=== PATIENT | female | born 1945 | race Caucasian/White ===

== ENCOUNTER 2016-10-28 09:59 | Outpatient (CLI) | payer MEDICARE ==
[2016-10-28 10:56] LABS: ALT (SGPT) 38 U/L (0-55); AST (SGOT) 39 U/L (5-34); Albumin 3.9 g/dL (3.4-4.8); Alkaline Phosphatase 86 U/L (40-150); Anion Gap 15 mmol/L (10-20); BUN (Urea Nitrogen) 18 mg/dL (9.8-20.1); Bilirubin, Direct 0.2 mg/dL (0.1-0.3); Bilirubin, Total 0.6 mg/dL (0.2-1.2); Calc. Creatinine Clearance 0 mL/min (70-130); Calcium 9.6 mg/dL (7.8-10.44); Carbon Dioxide 27 mmol/L (23-31); Chloride 97 mmol/L (98-107); Estimated GFR-MDRD 76; Glucose 137 mg/dL (83-110); Hemoglobin A1c 6.9 % (4.0-6.0); Potassium 4.1 mmol/L (3.5-5.1); Protein, Total 7.1 g/dL (5.8-8.1); Sodium 135 mmol/L (136-145)
== END 2016-10-28 10:00 ==
LOC: MADLABBHPM 09:59
PROVIDERS: ATTEND Family Medicine
DX: E11.9 Type 2 diabetes mellitus without complications (principal)
CPT/HCPCS: 36415; 80048; 80076; 83036

== ENCOUNTER 2019-05-20 11:02 | Outpatient (CLI) | payer MEDICARE ==
--- NOTE | 2019-05-20 11:42 | CT ---
Exam: Head CT without contrast HISTORY: Memory impairment COMPARISON: none FINDINGS: Hemorrhage: No intraparenchymal hemorrhage or extra-axial hematoma. Brain parenchyma: Cortical altamirano-white matter differentiation is preserved. No mass effect or midline shift. Basilar cisterns are patent.There is diffuse cerebral brain volume loss. White matter hypodensities due to chronic small vessel ischemic changes are noted. Ventricular system: Ventricular system is prominent and is in keeping with the overall degree of atro phy. 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 Calvarium: Intact. Sinuses and mastoid air cells: Adequate aeration. IMPRESSION: 1. No acute intracranial process 2. Diffuse cerebral atrophy. 3. Chronic small vessel ischemic changes white matter 4. Prominence of the ventricular system, in keeping with the overall degree of atrophy.
== END 2019-05-20 11:03 | disposition home or self-care (01) ==
LOC: MADLABBHPM 11:02
PROVIDERS: ATTEND Family Medicine
DX: R41.3 Other amnesia (principal); G31.9 Degenerative disease of nervous system, unspecified
CPT/HCPCS: 36415; 70450; 82607

== ENCOUNTER 2019-08-02 18:28 | Emergency (ER) | payer MEDICARE ==
[2019-08-02] MEDS ORDERED: Bacitracin 1 PK ONE (20:03)
== END 2019-08-02 20:13 | disposition home or self-care (01) ==
LOC: MADERS 18:28
DX: S00.83XA Contusion of other part of head, initial encounter (principal); I25.10 Atherosclerotic heart disease of native coronary artery without angina pectoris; I25.2 Old myocardial infarction; E11.9 Type 2 diabetes mellitus without complications; E78.5 Hyperlipidemia, unspecified; E78.00 Pure hypercholesterolemia, unspecified; I10 Essential (primary) hypertension; F32.9 Major depressive disorder, single episode, unspecified; W18.30XA Fall on same level, unspecified, initial encounter; Y92.481 Parking lot as the place of occurrence of the external cause
CPT/HCPCS: 99283

== ENCOUNTER 2019-09-20 17:50 | Emergency (ER) | payer MEDICARE ==
--- NOTE | 2019-09-20 18:40 | CT ---
Head CT without contrast 09/20/2019: COMPARISON: 05/20/2019 HISTORY: Injury, trauma, pain TECHNIQUE: Axial CT imaging at 5 mm intervals from vertex through skull base without contrast FINDINGS: The visualized paranasal sinuses and mastoid air cells are well aerated. No displaced grace rial fracture is noted. There is a focal area of scalp swelling posteriorly on the right in the parieto-occipital region. There is also soft tissue swelling seen laterally on the left just superior to the ear in the left temporal region. No associated calvarial fracture. There is atherosclerotic calcification of the distal right vertebra l artery and bilateral cavernous carotid arteries. There is moderate diffuse cerebral volume loss with associated prominence of the CSF containing space s. There is extensive periventricular, deep, and subcortical white matter hypodensity. There is a new focal area of well-defined hypodensity measuring 2.5 cm involving the superior aspect of the righ t putamen extending into the periventricular white matter suggesting an area of interval infarction. 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 For full assessment, nonemergent brain MRI is advised for full assessment. Underlying mass cannot be fully excluded. Areas of soft tissue swelling noted with no associated calvarial fracture or intracranial hemorrhage.
--- NOTE | 2019-09-20 18:43 | CT ---
CT of theface: 09/20/2019 COMPARISON:None available HISTORY:Injury, trauma, pain TECHNIQUE: Serial axial CT imaging at2.5 mm intervals through the face without contrast. Coronal and sagittal reformatted imaging obtained. Findings:Partially imaged brain parenchyma demonstrates extensive periventricular, deep, and subcorti arlene white matter hypodensity, evidence of small vessel disease. The nasal bones, zygomatic arches, and pterygoid plates are intact. The mastoid air cells and the par anasal sinuses are well aerated. There is incompletely imaged scalp swelling in the right parieto-occipital region and in the left temporal region. The orbital floor and the medial orbital wa ll appears intact bilaterally. Neither temporomandibular joint is dislocated and there is no evidence for a mandibular fracture. Impression:No acute facial bone fracture.
[2019-09-20] MEDS ORDERED: Sodium Chloride 0.9% 1,000 ML ONE ×2 (18:51→20:55)
--- NOTE | 2019-09-20 19:05 | RAD ---
Portable frontal chest radiograph: 09/20/2019 COMPARISON: 01/28/2008 HISTORY: Fall, tachycardia FINDINGS: Stable right-sided Port-A-Cath and midline sternotomy wires. No pneumothorax, pleural fluid , focal consolidation, or alveolar edema. There is atherosclerotic calcification of the aortic arch. IMPRESSION: No focal consolidation or alveolar edema.
[2019-09-20 19:13] LABS: #Basophils 0.1 thou/uL (0.0-0.2); #Lymphocytes 1.6 thou/uL (1.20-3.40); #Monocytes 1.1 thou/uL (0.11-0.59); #Neutrophils 12.6 thou/uL (1.40-6.50); %Basophils 0.5 % (0.0-1.0); %Eosinophils 0.1 % (0.0-10.0); %Lymphocytes 10.1 % (21.0-51.0); %Monocytes 6.9 % (0.0-10.0); %Neutrophils 82.4 % (42.0-75.0); Hemoglobin 13.3 g/dL (12.0-16.0); Mean Corpuscular HGB CONC 31.4 g/dL (32.0-36.0); Mean Corpuscular Hemoglobin 28.1 pg (27.0-31.0); Mean Corpuscular Volume 89.7 fL (78.0-98.0); Mean Platelet Volume 9.7 fL (7.4-10.4); Platelet Count 337 thou/uL (130-400); RBC Distribution Width 12.1 % (11.5-14.5); Red Blood Cell (RBC) Count 4.74 mill/uL (4.20-5.40); White Blood Cell (WBC) Count 15.3 thou/uL (4.8-10.8)
[2019-09-20 19:31] LABS: ALT (SGPT) 47 U/L (8-55); AST (SGOT) 81 U/L (5-34); Albumin 4.2 g/dL (3.4-4.8); Alkaline Phosphatase 105 U/L (40-110); Anion Gap 19 mmol/L (10-20); BUN (Urea Nitrogen) 34 mg/dL (9.8-20.1); Bilirubin, Total 0.8 mg/dL (0.2-1.2); CK (CPK) 2167 U/L (29-168); Calc. Creatinine Clearance 0 mL/min (70-130); Calcium 10.1 mg/dL (7.8-10.44); Carbon Dioxide 23 mmol/L (23-31); Chloride 100 mmol/L (98-107); Estimated GFR-MDRD 78; Globulin 3.3 g/dL (2.4-3.5); Glucose 144 mg/dL (83-110); Magnesium 1.9 mg/dL (1.6-2.6); Potassium 3.7 mmol/L (3.5-5.1); Protein, Total 7.5 g/dL (6.0-8.3); Sodium 138 mmol/L (136-145)
[2019-09-20 19:37] LABS: Bilirubin Small (Negative); Blood, Urine Moderate (Negative); Clarity Cloudy (Clear); Glucose, Urine (Dipstick) Negative (Negative); Leukocyte Negative (Negative); Nitrite Negative (Negative); Protein, Urine (Dipstick) 100 mg/dL (Neg-Trace); Urobilinogen 0.2 mg/dL (Less than 2)
[2019-09-20 19:46] LABS: Bacteria/HPF Rare-Few HPF (None Seen); Mucous/LPF 4+ LPF (<2+); Squamous Epithelial 0-3 HPF (0-3); WBC/HPF 0-3 HPF (0-3)
[2019-09-20 20:14] LABS: CKMB 19.5 ng/mL (0-6.6); Critical Call CKMB 0
[2019-09-21] MEDS ORDERED: Sodium Chloride 0.9% 1,000 ML ONE ×2 (00:10→03:53)
[2019-09-21 00:17] LABS: Anion Gap 14 mmol/L (10-20); BUN (Urea Nitrogen) 31 mg/dL (9.8-20.1); CK (CPK) 1615 U/L (29-168); Calc. Creatinine Clearance 0 mL/min (70-130); Calcium 8.8 mg/dL (7.8-10.44); Carbon Dioxide 22 mmol/L (23-31); Chloride 106 mmol/L (98-107); Estimated GFR-MDRD Greater than 90; Glucose 123 mg/dL (83-110); Potassium 3.4 mmol/L (3.5-5.1); Sodium 139 mmol/L (136-145)
[2019-09-21] MEDS ORDERED: Aspirin Chewable 81 MG TAB ONE (00:32)
[2019-09-21 00:38] LABS: CKMB 13.5 ng/mL (0-6.6); Critical Call CKMB 0
== END 2019-09-21 06:25 | disposition short-term general hospital (02) ==
LOC: MADERS 17:50
DX: T79.6XXA Traumatic ischemia of muscle, initial encounter (principal); I25.10 Atherosclerotic heart disease of native coronary artery without angina pectoris; I25.2 Old myocardial infarction; E11.9 Type 2 diabetes mellitus without complications; E78.5 Hyperlipidemia, unspecified; I10 Essential (primary) hypertension; F32.9 Major depressive disorder, single episode, unspecified; Z79.84 Long term (current) use of oral hypoglycemic drugs; Z79.899 Other long term (current) drug therapy; W19.XXXA Unspecified fall, initial encounter; Z91.81 History of falling
CPT/HCPCS: 36416; 51701; 70450; 70486; 71045; 80053; 81003; 81015; 82550; 82553; 83735; 83880; 84484; 85025; 87086; 93005; 96360; 96361; A4353; J7050

== ENCOUNTER 2021-06-11 16:20 | Emergency (ER) | payer MEDICARE ==
[2021-06-11] MEDS ORDERED: Ibuprofen 100 MG/5 ML UDCUP ONE (17:01)
[2021-06-11 17:17] LABS: #Lymphocytes 0.9 thou/uL (1.20-3.40); #Monocytes 0.9 thou/uL (0.11-0.59); #Neutrophils 6.7 thou/uL (1.40-6.50); %Basophils 0.5 % (0.0-1.0); %Eosinophils 0.1 % (0.0-10.0); %Lymphocytes 10.2 % (21.0-51.0); %Monocytes 10.6 % (0.0-10.0); %Neutrophils 78.6 % (42.0-75.0); Hemoglobin 10.8 g/dL (12.0-16.0); Mean Corpuscular HGB CONC 31.3 g/dL (32.0-36.0); Mean Corpuscular Hemoglobin 27.7 pg (27.0-31.0); Mean Corpuscular Volume 88.6 fL (78.0-98.0); Mean Platelet Volume 8.5 fL (7.4-10.4); Platelet Count 226 thou/uL (130-400); RBC Distribution Width 12.3 % (11.5-14.5); White Blood Cell (WBC) Count 8.5 thou/uL (4.8-10.8)
[2021-06-11 17:28] LABS: CRP (Inflammatory) 11.1 mg/dL (= or < 0.5)
[2021-06-11 17:32] LABS: Bilirubin Negative (Negative); Blood, Urine Moderate (Negative); Glucose, Urine (Dipstick) Negative (Negative); Ketone, Urine 15 mg/dL (Negative); Leukocyte Large (Negative); Nitrite Positive (Negative); Protein, Urine (Dipstick) 100 mg/dL (Neg-Trace); pH, Urine 5.5 (5.0-9.0)
[2021-06-11 17:34] LABS: Clarity Cloudy (Clear)
[2021-06-11 17:35] LABS: Bacteria/HPF 3+ HPF (None Seen); WBC/HPF Greater Than 50 HPF (0-3)
[2021-06-11 17:39] LABS: ALT (SGPT) 12 U/L (8-55); AST (SGOT) 15 U/L (5-34); Albumin 3.4 g/dL (3.4-4.8); Alkaline Phosphatase 81 U/L (40-110); Anion Gap 16 mmol/L (10-20); BUN (Urea Nitrogen) 25 mg/dL (9.8-20.1); Bilirubin, Total 0.4 mg/dL (0.2-1.2); Calc. Creatinine Clearance 0 mL/min (70-130); Calcium 8.7 mg/dL (7.8-10.44); Carbon Dioxide 23 mmol/L (23-31); Chloride 99 mmol/L (98-107); Globulin 3.3 g/dL (2.4-3.5); Glucose 174 mg/dL (83-110); Potassium 3.8 mmol/L (3.5-5.1); Protein, Total 6.7 g/dL (5.8-8.1); Sodium 134 mmol/L (136-145)
[2021-06-11] MEDS ORDERED: cefTRIAXone\\ROCEPHIN 2 GM VIAL ONE (18:08)
[2021-06-11] MEDS ORDERED: Sodium Chloride 0.9% 100 ML ONE (18:09)
[2021-06-11 18:47] LABS: SARS-CoV-2 NAA Rapid Test Not Detected (NotDetected)
== END 2021-06-11 19:27 ==
LOC: MADERS 16:20
DX: N10 Acute pyelonephritis (principal); I25.10 Atherosclerotic heart disease of native coronary artery without angina pectoris; I25.2 Old myocardial infarction; E11.9 Type 2 diabetes mellitus without complications; Z20.822 Contact with and (suspected) exposure to COVID-19; E78.5 Hyperlipidemia, unspecified; I10 Essential (primary) hypertension; Z79.899 Other long term (current) drug therapy; Z79.82 Long term (current) use of aspirin
CPT/HCPCS: 0240U; 36415; 51701; 71045; 80053; 81003; 81015; 82550; 83605; 84484; 85025; 85379; 86140; 87040; 87149; 93005; 94760; 96365; J0696; J3490

== ENCOUNTER 2022-04-22 17:21 | Emergency (ER) | payer MEDICARE ==
[~2022-04-22 17:21] MED LIST: Iopamidol 370 76% 125 ML VIAL FS ONE
[2022-04-22 18:18] LABS: #Basophils 0.1 thou/uL (0.0-0.2); #Eosinphils 0.2 thou/uL (0.0-0.7); #Lymphocytes 2.5 thou/uL (1.20-3.40); #Monocytes 0.7 thou/uL (0.11-0.59); #Neutrophils 5.5 thou/uL (1.40-6.50); %Basophils 0.9 % (0.0-1.0); %Eosinophils 1.8 % (0.0-10.0); %Lymphocytes 27.9 % (21.0-51.0); %Monocytes 8.1 % (0.0-10.0); %Neutrophils 61.3 % (42.0-75.0); Hemoglobin 11.1 g/dL (12.0-16.0); Mean Corpuscular HGB CONC 32.2 g/dL (32.0-36.0); Mean Corpuscular Hemoglobin 29.3 pg (27.0-31.0); Mean Platelet Volume 9.9 fL (7.4-10.4); Platelet Count 249 thou/uL (130-400); RBC Distribution Width 12.4 % (11.5-14.5); White Blood Cell (WBC) Count 8.9 thou/uL (4.8-10.8)
[2022-04-22 18:26] LABS: INR-International Normal Ratio 1.1; Prothrombin Time 13.9 sec (12.0-14.7)
[2022-04-22 18:27] LABS: PTT 32.8 sec (22.9-36.1)
[2022-04-22 18:37] LABS: ALT (SGPT) 12 U/L (8-55); AST (SGOT) 16 U/L (5-34); Albumin 3.4 g/dL (3.4-4.8); Alkaline Phosphatase 92 U/L (40-110); Anion Gap 15 mmol/L (10-20); BUN (Urea Nitrogen) 28 mg/dL (9.8-20.1); Bilirubin, Total 0.4 mg/dL (0.2-1.2); CK (CPK) 26 U/L (29-168); Calc. Creatinine Clearance 0 mL/min (70-130); Carbon Dioxide 24 mmol/L (23-31); Chloride 105 mmol/L (98-107); Estimated GFR 81; Globulin 3.1 g/dL (2.4-3.5); Glucose 99 mg/dL (83-110); Magnesium 1.6 mg/dL (1.6-2.6); Potassium 3.5 mmol/L (3.5-5.1); Protein, Total 6.5 g/dL (5.8-8.1); Sodium 140 mmol/L (136-145)
[2022-04-22 19:13] LABS: SARS-CoV-2 NAA Rapid Test Not Detected (NotDetected)
[2022-04-22 19:40] LABS: Bilirubin Negative (Negative); Blood, Urine Trace (Negative); Clarity Slightly Cloudy (Clear); Glucose, Urine (Dipstick) Negative (Negative); Ketone, Urine Negative (Negative); Leukocyte Small (Negative); Nitrite Positive (Negative); Protein, Urine (Dipstick) Negative (Neg-Trace); pH, Urine 5.5 (5.0-9.0)
[2022-04-22 19:45] LABS: Bacteria/HPF 3+ HPF (None Seen); RBC/HPF 0-3 HPF (0-3); Specific Gravity, Urine 1.005 (1.002-1.036); WBC/HPF 21-50 HPF (0-3)
[2022-04-22] MEDS ORDERED: Sodium Chloride 0.9% 100 ML ONE (20:49)
[2022-04-22] MEDS ORDERED: cefTRIAXone\\ROCEPHIN 2 GM VIAL ONE (20:49)
[2022-04-22] MEDS ORDERED: Acetaminophen 325 MG TAB ONE (21:54)
== END 2022-04-22 22:02 ==
LOC: MADERS 17:21
DX: N39.0 Urinary tract infection, site not specified (principal); Z20.822 Contact with and (suspected) exposure to COVID-19; I25.2 Old myocardial infarction; E11.9 Type 2 diabetes mellitus without complications; E78.00 Pure hypercholesterolemia, unspecified; Z79.899 Other long term (current) drug therapy
CPT/HCPCS: 0240U; 51701; 70450; 70496; 70498; 71045; 82550; 83605; 83735; 84484; 85610; 85730; 87040; 87077; 87086; 87186; 93005; 94760; 96365; 99285; 80053; 81003; 81015; 84443; 85025; J0696; J3490; Q9967